=== PATIENT | male | born 1970 | race Caucasian/White ===

== ENCOUNTER 2023-08-20 15:00 | Emergency (ER) | payer OTHER ==
[2023-08-20 15:31] VITALS: TEMP 99; BMI 32.5
[2023-08-20] MEDS ORDERED: METOCLOPRAMIDE HCL INJECTION 10 MG/2 ML VIAL IVPUSH ONE (15:31)
[2023-08-20] MEDS ORDERED: IBUPROFEN 400 MG TABLET (FP) PO ONE ×2 (15:31→15:39)
[2023-08-20] MEDS ORDERED: SODIUM CHLORIDE 1,000 ML IV ONE (15:31)
[2023-08-20] MEDS ORDERED: METOCLOPRAMIDE HCL INJECTION 10 MG/2 ML VIAL ONE (15:39)
[2023-08-20 16:03] LABS: HEMATOCRIT 48.1 % (35.4-49); HEMOGLOBIN 16.9 G/dL (11.7-16.9); MCH 31.7 pg (25.7-33.7); MCHC 35.2 g/dl (32.0-35.9); MEAN CELL VOLUME 90.1 fl (80-96); MEAN PLT VOLUME 10.3 fl (7.5-11.1); PLATELET COUNT 163.1 10^3/uL (134-434); RBC 5.34 10^6/uL (4.00-5.60); RDW 13.6 % (11.9-15.9); WHITE BLOOD COUNT 9.9 10^3/uL (4.0-10.8)
[2023-08-20 16:05] LABS: PLATELET ESTIMATE ADEQUATE
[2023-08-20 16:08] LABS: ALBUMIN 4.6 g/dl (3.4-5.0); BILIRUBIN,TOTAL 1.3 mg/dl (0.2-1); CALCIUM 9.6 mg/dl (8.5-10.1); POTASSIUM 3.4 mmol/L (3.5-5.1); TOT PROT 7.3 g/dl (6.4-8.2)
[2023-08-20] MEDS ORDERED: POTASSIUM CHLORIDE ORAL LIQUID 20 MEQ/15 ML PO ONE (16:52)
[2023-08-20] MEDS ORDERED: POTASSIUM CHLORIDE ORAL LIQUID 20 MEQ/15 ML ONE (16:54)
[2023-08-20 17:06] LABS: EPITHELIAL CELLS 0-5 /hpf
[2023-08-20] MEDS ORDERED: valACYclovir HCL 500 MG TABLET (FP) PO ONE (17:25)
[2023-08-20] MEDS ORDERED: valACYclovir HCL 500 MG TABLET (FP) ONE (17:27)
[2023-08-20 17:40] VITALS: BP 145/97; PULSE 69; RESP 16
== END 2023-08-20 17:40 | disposition home or self-care (01) ==
LOC: FER 15:00
PROC: 3E033GC Introduction of Other Therapeutic Substance into Peripheral Vein, Percutaneous Approach (ICD-10-PCS; principal; 2023-08-20)
PROC: 3E0337Z Introduction of Electrolytic and Water Balance Substance into Peripheral Vein, Percutaneous Approach (ICD-10-PCS; 2023-08-20)
DX: R11.10 Vomiting, unspecified (principal); R19.7 Diarrhea, unspecified; R51.9 Headache, unspecified; R21 Rash and other nonspecific skin eruption; M54.50 Low back pain, unspecified; M79.606 Pain in leg, unspecified; B34.9 Viral infection, unspecified; B02.9 Zoster without complications; Z20.822 Contact with and (suspected) exposure to COVID-19
CPT/HCPCS: 0241U-QW; 36415; 80053; 81003; 81015; 85027; 99284-25

== ENCOUNTER 2023-08-21 18:01 | Emergency (ER) | payer OTHER ==
[2023-08-21] MEDS ORDERED: SODIUM CHLORIDE 0.9% 500 ML INFUS.BAG IV ONE (18:21)
[2023-08-21 18:35] VITALS: BP 153/93; PULSE 98; RESP 16; TEMP 98.4; BMI 33.2
[2023-08-21 19:14] LABS: INR 1.17 (0.83-1.09); PROTHROMBIN TIME (PATIENT) 13.6 SEC (9.7-13.0)
[2023-08-21 19:19] LABS: HEMATOCRIT 48.3 % (35.4-49); HEMOGLOBIN 16.6 G/dL (11.7-16.9); MCH 31.1 pg (25.7-33.7); MCHC 34.4 g/dl (32.0-35.9); MEAN CELL VOLUME 90.3 fl (80-96); MEAN PLT VOLUME 10.2 fl (7.5-11.1); PLATELET COUNT 152.8 10^3/uL (134-434); RBC 5.35 10^6/uL (4.00-5.60); RDW 13.4 % (11.9-15.9); WHITE BLOOD COUNT 8.2 10^3/uL (4.0-10.8)
[2023-08-21 19:34] LABS: PLATELET ESTIMATE ADEQUATE
[2023-08-21 19:36] LABS: ALBUMIN 4.8 g/dl (3.4-5.0); ALK PHOS 47 U/L (45-117); ANION GAP 8 mmol/L (4-13); BILIRUBIN,TOTAL 1.4 mg/dl (0.2-1); CALCIUM 9.9 mg/dl (8.5-10.1); CHLORIDE 98 mmol/L (98-107); CO2 29 mmol/L (21-32); GLUCOSE,RANDOM 94 mg/dl (74-106); POTASSIUM 3.7 mmol/L (3.5-5.1); SGOT/AST 22 U/L (15-37); SGPT/ALT 29 U/L (7-52); SODIUM 135 mmol/L (136-145); TOT PROT 7.6 g/dl (6.4-8.2)
[2023-08-21] MEDS ORDERED: SODIUM CHLORIDE 1,000 ML IV STA (21:00)
[2023-08-21] MEDS ORDERED: ACETAMINOPHEN 325 MG TABLET (FP) PO ONE (21:48)
[2023-08-21] MEDS ORDERED: ACETAMINOPHEN 325 MG TABLET (FP) ONE (21:49)
== END 2023-08-21 21:54 | disposition home or self-care (01) ==
LOC: FER 18:01
PROC: 3E0337Z Introduction of Electrolytic and Water Balance Substance into Peripheral Vein, Percutaneous Approach (ICD-10-PCS; principal; 2023-08-21)
DX: B02.9 Zoster without complications (principal); B34.9 Viral infection, unspecified; R51.9 Headache, unspecified; R53.83 Other fatigue; R19.7 Diarrhea, unspecified; R11.10 Vomiting, unspecified; R50.9 Fever, unspecified
CPT/HCPCS: 36415; 71045-TC-FY; 80053; 83605; 83880; 84484; 85027; 85610; 85651; 85730; 86140; 87040; 87086; 99284-25